=== PATIENT | male | born 1980 | race Caucasian/White ===

== ENCOUNTER 2017-04-29 14:36 | Emergency (ER) | payer SELFPAY ==
[~2017-04-29 14:36] MED LIST: ALBU8I INH; AUGM875T PO; NAPR500 PO; PRED20 PO; ZITH250T PO
[2017-04-29 15:15] VITALS: BP 132/75; PULSE 91; RESP 18; TEMP 97.7; O2SAT 98
--- NOTE | 2017-04-29 15:48 | RADRPT ---
EXAM DATE/TIME: 04/29/2017 15:30 [facility] COMPARISON: No previous studies available for comparison. INDICATIONS : Skateboard accident, neck pain, previous C4-C6 fusion in 2006. RADIATION DOSE: 16.02 CTDIvol (mGy) MEDICAL HISTORY : None SURGICAL HISTORY : Fusion, cervical. ENCOUNTER: Initial ACUITY: 3 days PAIN SCALE: 7/10 LOCATION: Bilateral neck TECHNIQUE: Volumetric scanning of the cervical spine was performed. Multiplanar reconstructions in the sagittal, coronal and oblique axial planes were performed. Using automated exposure control and adjustment o f the mA and/or kV according to patient size, radiation dose was kept as low as reasonably achievable to obtain optimal diagnostic quality images. DICOM format image data is available electronically f or review and comparison. FINDINGS: VERTEBRAE: Normal vertebral body height. Status post anterior cervical fusion at C4-5 and C5-6. The hardware is grossly intact. No acute bony fracture. ALIGNMENT: No evidence of subluxation. C2-C3: The bony spinal canal is normal in size. No evidence of disc bulge or herniation. The neural forami na are bilaterally patent. C3-C4: The bony spinal canal is normal in size. No evidence of disc bulge or herniation. The neural forami na are bilaterally patent. C4-C5: The bony spinal canal is normal in size. No evidence of disc bulge or herniation. The neural forami na are bilaterally patent. C5-C6: The bony spinal canal is normal in size. No evidence of disc bulge or herniation. The neural forami na are bilaterally patent. C6-C7: The bony spinal canal is normal in size. No evidence of disc bulge or herniation. The neural forami na are bilaterally patent. C7-T1: The bony spinal canal is normal in size. No evidence of disc bulge or herniation. The neural forami na are bilaterally patent. CONCLUSION: 1. Status post anterior cervical fusion at C4-5 and C5-6. 2. Otherwise, unremarkable exam. Broderick Arellano MD on April 29, 2017 at 15:43 Board Certified Radiologist. This report was verified electronically.
--- NOTE | 2017-04-29 16:16 | RADRPT ---
EXAM DATE/TIME: 04/29/2017 15:58 [facility] COMPARISON: No previous studies available for comparison. INDICATIONS : Left hip pain for 4 days. Skateboard accident. MEDICAL HISTORY : None. SURGICAL HISTORY : None. ENCOUNTER: Initial ACUITY: 4 - 6 days PAIN SCORE: 10/10 LOCATION: Left hip. FINDINGS: Examination of the left hip was performed with AP Pelvis. The primary and secondary trabecular patte rn of the femoral neck is intact. The hip joint is of normal width without significant sclerosis or bony hypertrophy. The acetabulum is grossly intact. CONCLUSION: Normal examination for a patient of this age. Broderick Arellano MD on April 29, 2017 at 16:14 Board Certified Radiologist. This report was verified electronically.
--- NOTE | 2017-04-29 17:28 | PD ---
HPI Chief Complaint: Pain: Acute or Chronic Time Seen by Provider: 17:05 Travel History International Travel<30 days: No Contact w/Intl Traveler<30days: No Traveled to known affect area: No History of Present Illness HPI 36 YO M presents to the ED for evaluation of 8/10 left arm pain. Onset "3 days ago" after the patient fell while skateboarding in [facility]. He states that he was seen at an emergency room and diagnosed with a wrist fracture. A splint was placed at the time. He states that he called Dr. Peña's office today for follow-up and was told to come to the emergency room. He also complains of posterior neck pain, worsened by range of motion and left hip pain. He has been ambulatory since the accident. He denies numbness, tingling , weakness, limitation to range of motion of the remaining extremities. Home with "a Dilaudid that I got from a friend." PFSH Past Medical History Hx Anticoagulant Therapy: No Autoimmune Disease: No Blood Disorders: No Anxiety: No Depression: Yes Cancer: No Cardiovascular Problems: No Chemotherapy: No Cerebrovascular Accident: No Diabetes: No Diminished Hearing: No Endocrine: No Gastrointestinal Disorders: No Genitourinary: No Immune Disorder: No Implanted Vascular Access Dvce: Yes Musculoskeletal: Yes Neurologic: No Psychiatric: No Reproductive: No Respiratory: No Thyroid Disease: No Past Surgical History AICD: No Arteriovenous Shunt: No Body Medical Devices: CERVICAL HARDWARE Genitourinary Surgery: Yes (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) Insulin Pump: No Joint Replacement: No (C5 FUSION) Neurologic Surgery: Yes (ANTERIOR CERVICAL FUSION C4-6 S/P [facility] [place] - 12/2006) Pacemaker: No Other Surgery: Yes (UNDISTENDED TESTICLE SURGERY) Social History Alcohol Use: No Tobacco Use: Yes (1 PPD) Substance Use: Yes (Occasional marijuana ) Allergies-Medications (Allergen,Severity, Reaction): Coded Allergies: No Known Allergies (Verified , 02/12/15) Reported Meds & Prescriptions Reported Meds & Active Scripts Active Bactroban Topical (Mupirocin) 22 Gm Cream 1 Applic TOPICAL BID 10 Days Ibuprofen 800 Mg Tab 800 Mg PO Q8H PRN Ventolin Hfa (Albuterol Sulfate) 8 Gm Aero 2 Puff INH Q6 PRN * SHAKE WELL BEFORE USE * Deltasone 20 Mg Tab (Prednisone) 20 Mg Tab 20 Mg PO Q12HR 5 Days Zithromax Z-Wayne (Azithromycin) 250 Mg Tab 250 Mg PO DIRECTED 5 Days 500 MG (2 TABLETS) PO ON DAY 1, THEN 250 MG (1 TABLET) PO ON DAYS 2 TO 5. Naprosyn (Naproxen) 500 Mg Tab 500 Mg PO BID PRN Take with food Augmentin 875 mg Tab (Amoxicillin & Pot Clavulanate 875 mg Tab) 875 Mg Tab 875 Mg PO BID 7 Days Review of Systems Except as stated in HPI: all other systems reviewed are Neg Physical Exam Narrative GENERAL: Well-nourished, well-developed white male in no acute distress. Left arm in a colles splint. SKIN: Warm and dry. Multiple superficial lesions of the surface of the back, left hip and buttocks. Localized erythema without signs of infection. HEAD: Normocephalic. Atraumatic. No raccoon eyes or anderson sign. No tenderness to palpation of the skull. No bony step-offs. No malocclusion of the teeth. EYES: No scleral icterus. No injection or drainage. Pupils pinpoint bilaterally. EOMI. NECK: Supple, trachea midline. No JVD or lymphadenopathy. + midline and paraspinal muscular tenderness to palpation. Patient retains full, active range of motion of the neck. CARDIOVASCULAR: Regular rate and rhythm without murmurs, gallops, or rubs. 2+ DP and radial pulses bilaterally. RESPIRATORY: Breath sounds clear and equal bilaterally. No accessory muscle use. GASTROINTESTINAL: Abdomen soft, non-tender, nondistended. + Bowel sounds FOCUSED LEFT UPPER EXTREMITY EXAM: Fingers are pink, warm and well perfused. Mild edema noted. Sensation intact to light touch distally. MUSCULOSKELETAL: No cyanosis, or edema. No tenderness to palpation or limitations to range of motion of the remaining joints of the upper and lower extremities bilaterally. NEUROLOGICAL: Awake and alert. Cranial nerves II through XII intact. Motor and sensory grossly within normal limits. 5/5 muscle strength in all muscle groups. Normal speech. BACK: Nontender without obvious deformity. No CVA tenderness. No midline tenderness. Data Data Last Documented VS Vital Signs Date Time Temp Pulse Resp B/P (MAP) Pulse Ox O2 Delivery O2 Flow Rate FiO2 18 15:15 97.7 91 18 132/75 (94) [address] Cerv Spine W/O Contrast (04/29/17 ) Hip, Uni(Ap&Lat) W Ap Pelvis (04/29/17 ) Mandatory Outpatient Referral (04/29/17 17:28) Ed Discharge Order (04/29/17 17:32) [facility] Medical Decision Making Medical Screen Exam Complete: Yes Emergency Medical Condition: Yes Differential Diagnosis wrist fracture versus musculoskeletal pain versus abrasion versus wound infection versus other Narrative Course 36 YO M presents to the ED for evaluation of 8/10 left arm pain. Onset "3 days ago" after the patient fell while skateboarding in [facility]. He states that he was seen at an emergency room and diagnosed with a wrist fracture. A splint was placed at the time. He states that he called Dr. Peña's office today for follow-up and was told to come to the emergency room. He also complains of posterior neck pain, worsened by range of motion and left hip pain. He has been ambulatory since the accident. He denies numbness, tingling , weakness, limitation to range of motion of the remaining extremities. He treated at home with "a Dilaudid and got from a friend." Vitals reviewed. On exam the patient has pinpoint pupils and sluggish responses. He does have midline tenderness of the neck without focal neuro deficits. The splint is in place with some edema of the hand. The hand is warm, well-perfused and neurologically intact. CT of the cervical spine reveals previous fusion with no acute injury. X-ray of the hip normal. On recheck the patient is lying in the bed, asleep, mouth hanging wide open. Patient's prescribed 800 mg 3 times a day when necessary for pain. Mandatory outpatient consult was placed with orthopedics. He was given detailed instructions regarding the mandatory outpatient consult. He is stable and discharged home. Diagnosis Primary Impression: Musculoskeletal pain Additional Impression: Left wrist fracture Qualified Codes: S62.102D - Fracture of unspecified carpal bone, left wrist, subsequent encounter for fracture with routine healing Referrals: Aparna Ponce MD Additional Instructions: Keep the arm in a splint until cleared by the orthopedist. A mandatory outpatient referral has been placed on your behalf. The hospital will call you at the contact number that you supplied in a few days with further instructions regarding follow-up. Keep the abrasions clean, dry. Apply Bactroban ointment twice a day as prescribed. Return to normal, gentle activity as tolerated. 800 mg ibuprofen up to 3 times a day as needed for musculoskeletal pain. Return to the ED for worsening symptoms or any urgent or emergent medical condition. Scripts Mupirocin Topical (Bactroban Topical) 22 Gm Cream 1 APPLIC TOPICAL BID for Mgmt Bacterial Infection for 10 Days, #1 TUBE 0 Refills Prov: Gricel Fitzpatrick MD 04/29/17 Ibuprofen (Ibuprofen) 800 Mg Tab 800 MG PO Q8H Y for Pain/Inflammation, #15 TAB 0 Refills Prov: Gricel Fitzpatrick MD 04/29/17 Disposition: 01 DISCHARGE HOME Condition: Stable Justyna Merida Apr 29, 2017 17:28
[2017-04-29] MEDS ORDERED: IBUP1TAB7 PO (17:31)
[2017-04-29] MEDS ORDERED: MUPI2%T TOPICAL (17:31)
== END 2017-04-29 17:48 | disposition home or self-care (01) ==
LOC: NED 14:36 → NEPK 17:48
DX: M79.1 Myalgia (principal); M54.2 Cervicalgia; M25.552 Pain in left hip; S62.102D Fracture of unspecified carpal bone, left wrist, subsequent encounter for fracture with routine healing; V00.131D Fall from skateboard, subsequent encounter
CPT/HCPCS: 72125; 73502

== ENCOUNTER → 2017-05-08 | Day surgery (SDC) | payer SELFPAY ==
[~2017-05-08] VITALS: Ht 179.1 cm; Wt 72.0 kg
[~2017-05-08] MED LIST changes: +*MEPERIDINE 25 MG INJ VIAL PERIprocedural Use ONLY ONE; +*morphine SULFATE 4 MG/ML PERIprocedure ONLY ONE; +ACETAMINOPHEN 1000 MG/100 ML 100 ML IV ONE; +BUPIVACAINE/EPINEPHRINE 0.25% PF 10 ML VIAL ONE; +CHLORHEXIDINE GLUCONATE 2 % 1 PACK (2 CLOTHS) TOPICAL PRN; +CHLORHEXIDINE GLUCONATE 4% SOLN 120 ML BTL TOPICAL SCH; +DEXAMETHASONE SOD PHOS 4 MG/ML VIAL IV ONE; +DO NOT ADM ANY ANTICOAGULANT DRUGS PRN; +GENTAMICIN SULFATE 80 MG/2 ML VIAL ONE; +HYDROmorphone HCL PF 2 MG/ML VIAL ONE; +IBUP1TAB7 PO; +INSULIN HUMAN REGULAR 1,000 UNITS/10 ML VIAL SQ PRN; +KETOROLAC TROMETHAMINE 30 MG/ML (IVP) VIAL IV PUSH ONE; +LACTATED RINGER'S 1000 ML INJ 1,000 ML IV ONE; +LACTATED RINGER'S 1000 ML IV PRN; +LIDOCAINE HCL 1% PF 5 ML SYRINGE OTHER ONE; +METOPROLOL TARTRATE 25 MG TAB PO PRN; +MIDAZOLAM HCL 2 MG/2 ML VIAL ONE; +MORPHINE SULFATE 4 MG/ML INJ IV PUSH PRN; +MUPI2%T TOPICAL; +ONDANSETRON HCL 4 MG/2 ML VIAL IV ONE; +ONDANSETRON HCL 4 MG/2 ML VIAL IV PUSH PRN; +OXYC1TAB63 PO; +POVIDONE IODINE 5% (ANTISEPSIS KIT) 4 APPLICATIONS EACH NARE PRN; +PROPOFOL 200 MG/20 ML AMP IV ONE; +SODIUM CHLOR 0.9% 250 ML INJ 250 ML ONE; +SODIUM CHLORID 0.9% 500 ML IV PRN; +SODIUM CHLORIDE 0.9% FLUSH 10 ML FLUSH IV FLUSH PRN; +SODIUM CHLORIDE 0.9% FLUSH 10 ML FLUSH IV FLUSH SCH; +VANCOMYCIN HCL 1000 MG VIAL ONE; +ceFAZolin INJ 1,000 MG VIAL ONE; +oxyCODONE/ACETAMINOPHEN 5 MG/325 MG TAB PO PRN
[2017-05-08 11:54] LABS: AUTOMATED NEUTROPHIL # 2.7 TH/MM3 (1.8-7.7); BASOPHIL % 1.2 % (0.0-2.0); EOSINOPHIL # 0.1 TH/MM3 (0-0.4); EOSINOPHIL % 2.5 % (0.0-4.0); HEMOGLOBIN 13.7 GM/DL (13.0-17.0); LYMPH % 20.9 % (9.0-44.0); LYMPHOCYTE # 0.8 TH/MM3 (1.0-4.8); MEAN CELL VOLUME 85.8 FL (80.0-100.0); MEAN CORPUSCULAR HEMOGLOBIN 29.4 PG (27.0-34.0); MEAN CORPUSCULAR HGB CONC 34.2 % (32.0-36.0); MEAN PLATELET VOLUME 7.2 FL (7.0-11.0); MONO % 8.2 % (0.0-8.0); MONOCYTE # 0.3 TH/MM3 (0-0.9); NEUT % 67.2 % (16.0-70.0); PLATELET COUNT 259 TH/MM3 (150-450); RED BLOOD COUNT 4.66 MIL/MM3 (4.50-5.90); RED CELL DISTRIBUTION WIDTH 13.7 % (11.6-17.2); WHITE BLOOD COUNT 4.1 TH/MM3 (4.0-11.0)
[2017-05-08 11:57] LABS: PROTHROMBIN TIME - PATIENT 10.2 SEC (9.8-11.6)
[2017-05-08 12:10] LABS: BICARBONATE 27.4 MEQ/L (21.0-32.0); CALCIUM 8.9 MG/DL (8.5-10.1); CREATININE 0.94 MG/DL (0.60-1.30)
--- NOTE | 2017-05-08 15:05 | PD.OP ---
cc: Aparna Ponce MD Operative Report Date of Surgery: May 08, 2017 Preoperative Diagnosis: Closed left intra-articular distal radius fracture, four-part Postoperative Diagnosis: Same Procedure: Open reduction internal fixation left intra-articular distal radius fracture, four-part Anesthesia: Gen. Surgeon: Aparna Ponce Pole Setter(s): None Operation and Findings: EBL: 25 cc Complications: None Specimens: None Indications for procedure: Patient is a 36-year-old gentleman who fell while skateboarding in [place]. Patient was found to have a closed left distal radius fracture. Patient presented to my office in a splint. Options of management were discussed with the patient. Given the significant displacement and intra-articular split, I recommended open reduction internal fixation of his left distal radius fracture. Risks of surgery including but not limited to : Infection, nonunion or malunion, hardware malposition of failure, neurovascular injury, persistent wrist pain and stiffness, possible need for further surgery, and other unforeseen consultations were all discussed with the patient. At this time he is consented for the procedure. Description of procedure: Patient was brought back to the operating room placed supine on operating room table with all bony prominences well-padded. Gen. anesthesia then ensued. A tourniquet was placed on the upper left arm and the patient was prepped and draped in standard sterile fashion. A timeout was performed to identify the correct patient, side, site and procedure to be performed. Preoperative antibiotics were given within 1 hour of incision. The arm was then exsanguinated and tourniquet inflated to 250 mmHg. A volar Valdemar incision was made over the FCR tendon with sharp dissection through the skin and subcutaneous tissue. The FCR tendon was then mobilized ulnarly and the floor of the FCR sheath was incised along with the pronator quadratus. The fracture site was immediately encountered and this was sharply dissected and freed to allow mobilization. The fracture was then reduced with traction and extension of the wrist. A K wire was placed just proximal to the joint surface to hold this reduction. A Synthes distal radius plate was then placed and verified to be in appropriate position on AP and lateral radiographs. A proximal nonlocking screw was then placed a hold the plate in place. Again the fracture was found to be in acceptable alignment on AP and lateral and the plate in appropriate position. At this time, locking and nonlocking screws were placed both distally and proximally. These were tightened down. The volar tilt appeared to be restored and the joint surface within acceptable limits. Hardware appeared to be in appropriate position, and out of the joint surface. Final radiographs were obtained. Incision was thoroughly irrigated with normal saline laden with gentamicin. The subcutaneous tissue was then closed with Vicryl suture and the skin closed with nylon. Sterile dressings were applied and a splint also applied. Patient was then awoken from general anesthesia without complication. Disposition: Patient be nonweightbearing to the left upper extremity in a splint and sling. Patient should follow-up in my office in 2 weeks. Aparna Ponce MD May 08, 2017 15:05
[2017-05-08 16:39] VITALS: BP 144/99; PULSE 53; RESP 18; TEMP 97.4; O2SAT 97
--- NOTE | 2017-05-08 19:20 | RADRPT ---
EXAM DATE/TIME: 05/08/2017 14:44 [facility] COMPARISON: No previous studies available for comparison. INDICATIONS : Left wrist open reduction internal fixation. MEDICAL HISTORY : None. SURGICAL HISTORY : Fusion, cervical. ENCOUNTER: Initial ACUITY: 1 day PAIN SCORE: Non-responsive. LOCATION: Left wrist FINDINGS: Two view examination of the left wrist demonstrates a surgical plate along the distal radius successf ul reducing the distal radial fracture. The radiocarpal joint is normally aligned. CONCLUSION: Successful ORIF. Shaun Avila MD on May 08, 2017 at 19:17 Board Certified Radiologist. This report was verified electronically.
== END | disposition home or self-care (01) ==
LOC: HSDC 10:31
PROVIDERS: ATTEND Orthopaedic Surgery Orthopaedic Surgery of the Spine
DX: S52.572A Other intraarticular fracture of lower end of left radius, initial encounter for closed fracture (principal); V00.131A Fall from skateboard, initial encounter; Y93.51 Activity, roller skating (inline) and skateboarding; F17.290 Nicotine dependence, other tobacco product, uncomplicated
CPT/HCPCS: 01830; 25609; 73100; 76000; 80048; 85025; 85610; 85730; C1713; J0131; J0690; J1100; J1170; J1580; J1885; J2175; J2250; J2270; J2405; J3010; J3370; J7050; J7120

== ENCOUNTER 2017-05-22 11:39 | Inpatient (IN) | payer SELFPAY ==
[~2017-05-22] VITALS: Ht 177.8 cm; Wt 70.1 kg
[~2017-05-22 11:39] MED LIST changes: -*MEPERIDINE 25 MG INJ VIAL PERIprocedural Use ONLY ONE; -*morphine SULFATE 4 MG/ML PERIprocedure ONLY ONE; -ACETAMINOPHEN 1000 MG/100 ML 100 ML IV ONE; -ALBU8I INH; -AUGM875T PO; -BUPIVACAINE/EPINEPHRINE 0.25% PF 10 ML VIAL ONE; -CHLORHEXIDINE GLUCONATE 2 % 1 PACK (2 CLOTHS) TOPICAL PRN; -CHLORHEXIDINE GLUCONATE 4% SOLN 120 ML BTL TOPICAL SCH; -DEXAMETHASONE SOD PHOS 4 MG/ML VIAL IV ONE; -DO NOT ADM ANY ANTICOAGULANT DRUGS PRN; -GENTAMICIN SULFATE 80 MG/2 ML VIAL ONE; -HYDROmorphone HCL PF 2 MG/ML VIAL ONE; -IBUP1TAB7 PO; -INSULIN HUMAN REGULAR 1,000 UNITS/10 ML VIAL SQ PRN; -KETOROLAC TROMETHAMINE 30 MG/ML (IVP) VIAL IV PUSH ONE; -LACTATED RINGER'S 1000 ML INJ 1,000 ML IV ONE; -LACTATED RINGER'S 1000 ML IV PRN; -LIDOCAINE HCL 1% PF 5 ML SYRINGE OTHER ONE; -METOPROLOL TARTRATE 25 MG TAB PO PRN; -MIDAZOLAM HCL 2 MG/2 ML VIAL ONE; -MORPHINE SULFATE 4 MG/ML INJ IV PUSH PRN; -MUPI2%T TOPICAL; -NAPR500 PO; -ONDANSETRON HCL 4 MG/2 ML VIAL IV ONE; -ONDANSETRON HCL 4 MG/2 ML VIAL IV PUSH PRN; -POVIDONE IODINE 5% (ANTISEPSIS KIT) 4 APPLICATIONS EACH NARE PRN; -PRED20 PO; -PROPOFOL 200 MG/20 ML AMP IV ONE; -SODIUM CHLOR 0.9% 250 ML INJ 250 ML ONE; -SODIUM CHLORID 0.9% 500 ML IV PRN; -SODIUM CHLORIDE 0.9% FLUSH 10 ML FLUSH IV FLUSH PRN; -SODIUM CHLORIDE 0.9% FLUSH 10 ML FLUSH IV FLUSH SCH; -VANCOMYCIN HCL 1000 MG VIAL ONE; -ZITH250T PO; -ceFAZolin INJ 1,000 MG VIAL ONE; -oxyCODONE/ACETAMINOPHEN 5 MG/325 MG TAB PO PRN
[2017-05-22] MEDS ORDERED: PROPOFOL 200 MG/20 ML AMP IV ONE (12:00)
[2017-05-22] MEDS ORDERED: LACTATED RINGER'S 1000 ML INJ 1,000 ML IV ONE (12:00)
[2017-05-22] MEDS ORDERED: LIDOCAINE HCL 1% PF 5 ML SYRINGE OTHER ONE (12:00)
[2017-05-22] MEDS ORDERED: ceFAZolin INJ 1,000 MG VIAL IV ONE ×2 (12:00→16:05)
[2017-05-22] MEDS ORDERED: ONDANSETRON HCL 4 MG/2 ML VIAL IV ONE (12:00)
[2017-05-22] MEDS ORDERED: POVIDONE IODINE 5% (ANTISEPSIS KIT) 4 APPLICATIONS EACH NARE PRN (12:15)
[2017-05-22] MEDS ORDERED: LACTATED RINGER'S 1000 ML IV PRN (12:15)
[2017-05-22] MEDS ORDERED: SODIUM CHLORID 0.9% 500 ML IV PRN (12:15)
[2017-05-22] MEDS ORDERED: METOPROLOL TARTRATE 25 MG TAB PO PRN (12:15)
[2017-05-22] MEDS ORDERED: CHLORHEXIDINE GLUCONATE 4% SOLN 120 ML BTL TOPICAL SCH (12:15)
[2017-05-22] MEDS ORDERED: VANCOMYCIN 1 GM/200 ML PREMIX IV SCH (12:15)
[2017-05-22] MEDS ORDERED: CHLORHEXIDINE GLUCONATE 2 % 1 PACK (2 CLOTHS) TOPICAL PRN (12:15)
[2017-05-22] MEDS ORDERED: INSULIN HUMAN REGULAR 1,000 UNITS/10 ML VIAL SQ PRN (12:15)
[2017-05-22] MEDS ORDERED: BUPIVACAINE/EPINEPHRINE 0.25% 50 ML VIAL ONE (13:18)
[2017-05-22] MEDS ORDERED: GENTAMICIN SULFATE 80 MG/2 ML VIAL ONE (13:21)
[2017-05-22 13:32] LABS: AUTOMATED NEUTROPHIL # 4.9 TH/MM3 (1.8-7.7); BASOPHIL % 0.7 % (0.0-2.0); EOSINOPHIL # 0.2 TH/MM3 (0-0.4); EOSINOPHIL % 3.6 % (0.0-4.0); HEMATOCRIT 40.7 % (39.0-51.0); HEMOGLOBIN 13.9 GM/DL (13.0-17.0); LYMPH % 13.6 % (9.0-44.0); LYMPHOCYTE # 0.9 TH/MM3 (1.0-4.8); MEAN CELL VOLUME 85.5 FL (80.0-100.0); MEAN CORPUSCULAR HEMOGLOBIN 29.3 PG (27.0-34.0); MEAN CORPUSCULAR HGB CONC 34.2 % (32.0-36.0); MEAN PLATELET VOLUME 7.8 FL (7.0-11.0); MONO % 7.7 % (0.0-8.0); MONOCYTE # 0.5 TH/MM3 (0-0.9); NEUT % 74.4 % (16.0-70.0); PLATELET COUNT 239 TH/MM3 (150-450); RED BLOOD COUNT 4.76 MIL/MM3 (4.50-5.90); RED CELL DISTRIBUTION WIDTH 13.6 % (11.6-17.2); WHITE BLOOD COUNT 6.6 TH/MM3 (4.0-11.0)
[2017-05-22 13:41] LABS: PROTHROMBIN TIME - PATIENT 10.6 SEC (9.8-11.6)
[2017-05-22 13:46] LABS: BICARBONATE 27.6 MEQ/L (21.0-32.0); C-REACTIVE PROTEIN 1.37 MG/DL (0.00-0.30); CALCIUM 8.8 MG/DL (8.5-10.1); CREATININE 0.92 MG/DL (0.60-1.30)
[2017-05-22] MEDS ORDERED: fentaNYL CITRATE 250 MCG/5 ML AMP ONE (14:55)
[2017-05-22] MEDS ORDERED: VANCOMYCIN HCL 1000 MG VIAL ONE (16:06)
[2017-05-22] MEDS ORDERED: SENNOSIDES 8.6 MG TAB PO PRN (17:15)
[2017-05-22] MEDS ORDERED: LACTULOSE SYRUP 20 GM/30 ML CUP PO PRN (17:15)
[2017-05-22] MEDS ORDERED: BISACODYL 10 MG SUPP RECTAL PRN (17:15)
[2017-05-22] MEDS ORDERED: diphenhydrAMINE HCL 25 MG CAP PO PRN (17:15)
[2017-05-22] MEDS ORDERED: oxyCODONE/ACETAMINOPHEN 5 MG/325 MG TAB PO PRN (17:15)
[2017-05-22] MEDS ORDERED: MAGNESIUM HYDROXIDE SUSP 30 ML CUP PO PRN (17:15)
[2017-05-22] MEDS ORDERED: ONDANSETRON HCL 4 MG/2 ML VIAL IVP PRN (17:15)
[2017-05-22] MEDS ORDERED: HYDROmorphone HCL PF 2 MG/ML VIAL ONE (17:17)
[2017-05-22] MEDS ORDERED: Post-op Orders (for Pharmacy) XX ONE (17:20)
[2017-05-22] MEDS ORDERED: DO NOT ADM ANY ANTICOAGULANT DRUGS PRN (17:20)
--- NOTE | 2017-05-22 17:20 | PD.OP ---
cc: Aparna Ponce MD Operative Report Date of Surgery: May 22, 2017 Preoperative Diagnosis: Infection left distal radius with retained hardware Postoperative Diagnosis: Same Procedure: 1. Irrigation and debridement left distal radius 2. Application of external fixator left wrist Anesthesia: Gen. Surgeon: Aparna Ponce Boat Rigger(s): Brannon Montoya Operation and Findings: EBL: 100 cc Complications: None Specimens: Culture sent to microbiology Indications for procedure 36-year-old male who presented approximately 2 weeks status post ORIF left distal radius with purulence draining from incision. Options of management were discussed with the patient. Given the concern for infection, I recommended irrigation and debridement of his left distal radius with possible application of external fixator, possible hardware removal. Risks , benefits, alternatives were discussed with the patient. Risks of surgery including but not limited to: Persistent infection, nonunion or malunion, hardware malposition or failure, neurovascular injury, persistent wrist pain and or stiffness, possible need further surgery, and other unforeseen consultations were all discussed with the patient. At this time he is consented to the procedure. Description of procedure: Patient was brought back to the operating room placed supine on operating room table with all bony prominences well-padded. Gen. anesthesia then ensued. Patient was prepped and draped in standard sterile fashion. A timeout was performed to identify the correct patient, side, site and procedure to be performed. The volar incision over his wrist had the sutures removed. There is immediately a small amount of purulence encountered and this was cultured. The FCR tendon was mobilized ulnarly and the volar plates exposed. This again was cultured. At this time the wound was curetted and sharply debrided and brought back to healthy bleeding tissue. The wound was thoroughly irrigated with over 6 L of normal saline laden with gentamicin. The hardware appeared relatively stable and therefore was left in place. The wound was closed with PDS and nylon sutures. Underlying fluoroscopy, the wrist was flexed and extended and traction applied. The fracture appeared to be relatively unstable in length. At this time is decided to place external fixator in place to try to maintain length. I the made a small incision over the dorsal aspect of the second metacarpal with careful dissection through subcutaneous tissue and the extensor tendon mobilized. Guide sleeves were then placed and the second metacarpal was predrilled for placement of metacarpal pins. The pin was then placed. This process was then repeated just distally through the use of guide sleeves. I then turned my attention to the more proximal aspect of the radius. Approximate 4 cm proximal to the distal radius plate, I made a dorsal incision with dissection through the subtendinous tissue and fascia with mobilization of the extensor tendons to allow dissection straight down to the radius. Again the guide sleeves were placed, and the radius was predrilled for placement of radial pins. The pin was then placed and the process was repeated just proximally through the use of guide sleeves. When all 4 pins were verified to be bicortical, the clamps and rods were then applied. The clamps and rods were final tightened at the proximal aspect of the radius and left loose at the hand to allow for traction and rotation to be pulled. Under AP and lateral radiographs, the wrist was reduced and traction applied. The fracture appeared to be maintained in length and the clamps and francois were final tightened at the hand. Final radiographs demonstrated the fracture was in acceptable alignment and out to length. All wounds were thoroughly irrigated. Sterile dressings were applied along with a volar splint. Patient was awoken from general anesthesia without complication. Disposition: Patient will be admitted to the hospital and infectious disease will be consult it. Plan will be to leave his volar plate in place until his fracture is able to heel. He will likely require at least several weeks of antibiotics pending cultures. Aparna Ponce MD May 22, 2017 17:20
[2017-05-22] MEDS ORDERED: *MEPERIDINE 25 MG INJ VIAL PERIprocedural Use ONLY ONE (17:34)
[2017-05-22] MEDS ORDERED: *morphine SULFATE 4 MG/ML PERIprocedure ONLY ONE ×2 (17:41→17:49)
--- NOTE | 2017-05-22 17:43 | RADRPT ---
EXAM DATE/TIME: 05/22/2017 16:34 [facility] COMPARISON: WRIST LEFT LIMITED (AP & LAT), May 08, 2017, 14:44. INDICATIONS : Left forearm ex-fix. MEDICAL HISTORY : None. SURGICAL HISTORY : Fusion, cervical. Left wrist ORIF. ENCOUNTER: Initial ACUITY: 1 day PAIN SCORE: Non-responsive. LOCATION: Left forearm FINDINGS: 4 fluoroscopic images of the left wrist demonstrate external fixation screws in the proximal radius a nd third carpal bone with redemonstration of plate and screw fixation of comminuted radial head fract ure. CONCLUSION: 1. Left forearm external fixation, as above. Julito Zuleta MD on May 22, 2017 at 17:38 Board Certified Radiologist. This report was verified electronically.
[2017-05-22] MEDS ORDERED: KETOROLAC TROMETHAMINE 30 MG/ML (IVP) VIAL IV PUSH ONE (17:47)
[2017-05-22] MEDS ORDERED: ACETAMINOPHEN 1000 MG/100 ML 100 ML IV ONE ×2 (17:47→17:51)
[2017-05-22] MEDS ORDERED: LORazepam 2 MG/ML VIAL IV ONE (17:47)
[2017-05-22] MEDS ORDERED: KETOROLAC TROMETHAMINE 30 MG/ML (IVP) VIAL ONE (17:51)
[2017-05-22] MEDS ORDERED: LORazepam 2 MG/ML VIAL ONE (17:51)
[2017-05-22] MEDS ORDERED: *hydrOXYzine 25 MG VIAL PERIprocedural Use ONLY IM ONE (17:55)
[2017-05-22] MEDS ORDERED: LORazepam 2 MG/ML VIAL IV PRN (18:15)
[2017-05-22 20:00] VITALS: BP 148/73; PULSE 65; RESP 17; TEMP 97.5; O2SAT 100
[2017-05-22] MEDS: DOCUSATE SODIUM 50 MG/SENNA 8.6 MG TAB PO SCH (21:00)
[2017-05-22] MEDS: SODIUM CHLORIDE 0.9% FLUSH 10 ML FLUSH IV FLUSH SCH (21:12)
[2017-05-22] MEDS: MORPHINE SULFATE 2 MG/ML SYRINGE IV PUSH PRN (21:15)
[2017-05-23] VITALS: BP 131/72; PULSE 59; RESP 17; TEMP 97.8; O2SAT 97
[2017-05-23] MEDS: SODIUM CHLORIDE 0.9% FLUSH 10 ML FLUSH IV FLUSH PRN ×2 (04:03→04:54)
[2017-05-23] MEDS: VANCOMYCIN INJ 1,000 MG in SODIUM CHLOR 0.9% 250 ML INJ 250 ML IV SCH ×2 (04:03→15:53)
[2017-05-23] MEDS: MORPHINE SULFATE 2 MG/ML SYRINGE IV PUSH PRN ×4 (04:54→20:40)
[2017-05-23 08:00] VITALS: BP 129/82; PULSE 60; RESP 19; TEMP 98.1; O2SAT 96
[2017-05-23] MEDS: SODIUM CHLORIDE 0.9% FLUSH 10 ML FLUSH IV FLUSH SCH ×2 (08:34→20:41)
[2017-05-23] MEDS: DOCUSATE SODIUM 50 MG/SENNA 8.6 MG TAB PO SCH ×2 (08:35→20:41)
[2017-05-23 11:23] VITALS: BP 135/83; PULSE 68; RESP 16; TEMP 98.3; O2SAT 97
[2017-05-23] MEDS: oxyCODONE/ACETAMINOPHEN 5 MG/325 MG TAB PO PRN (12:41)
[2017-05-23 16:00] VITALS: BP 121/64; PULSE 67; RESP 18; TEMP 98.3; O2SAT 98
[2017-05-23] MEDS ORDERED: Vancomycin Consult Pharmacy 1 EA OTHER SCH (16:15)
--- NOTE | 2017-05-23 16:37 | MB ---
cc: Ulysses Murillo MD DATE: 05/23/2017 DATE OF CONSULTATION: 05/23/2017 REQUESTING PHYSICIAN: Dr. Ponce. REASON: Wound infection of the left wrist. HISTORY OF PRESENT ILLNESS: This is a 36-year-old white male who sustained a fracture of the left distal radius while skateboarding in [place] 2 weeks ago. The patient underwent open reduction and internal fixation of a left intraarticular distal radius fracture on 05/08/2017. He returned for followup and upon checking the wound he was noted to have drainage and was admitted to the hospital after undergoing irrigation and debridement of the left distal radius and application of an external fixator at the left wrist. The patient had retained hardware at the wrist on the first surgical procedure. Culture of the wound was taken at surgery and the results are pending. The patient notes that he has severe pain in the left hand at the wrist. He denies fever, chills, nausea or vomiting or other symptoms. White blood cell count is normal. PAST MEDICAL HISTORY: Fracture of the cervical spine in 2006. Anterior cervical fusion C4 through C6. 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 ALLERGIES: NO KNOWN DRUG ALLERGIES. MEDICATIONS: 1. Vistaril 2. Charleen-Colace. 3. Vancomycin. 4. Percocet p.r.n. 5. Morphine sulfate p.r.n. SOCIAL HISTORY: The patient smokes 1 pack of cigarettes a day. Denies alcohol use. Smoked marijuana. Denies illicit drugs. FAMILY HISTORY: Noncontributory. REVIEW OF SYSTEMS: Negative on a 10-point review except for pain in the left wrist. PHYSICAL EXAMINATION: GENERAL: A well-developed male is in no acute distress. He is awake and alert and oriented. VITAL SIGNS: Includes temperature 98.3, BP 135/83, respirations 16, heart rate 68. HEENT: Head is atraumatic. Extraocular movements grossly intact. No icterus. Oropharynx: Moist mucosa. No lesions. NECK: Supple without adenopathy. LUNGS: Clear breath sounds bilaterally. HEART: Regular S1 and S2. No murmurs, rubs or gallops. ABDOMEN: Bowel sounds present. Soft, nontender. RECTAL: Not performed. EXTREMITIES: The left wrist has an external fixator in place. The surgical incision at the inner aspect of the wrist is clean. No visible drainage. No visible erythema. The remaining extremities have no clubbing, cyanosis or edema. SKIN: No rash. NEUROLOGIC: No gross focal finding. PSYCHIATRIC: The patient is calm and cooperative. LABORATORY DATA: WBC 6.6, platelets 239, 74% neutrophils, 13% lymphocytes. Creatinine 0.92, BUN 13, sodium 138. IMPRESSION: Wound infection of the left wrist following wrist fracture repair with hardware. The wound culture is pending. RECOMMENDATIONS: 1. Continue vancomycin. 2. Follow the cultures obtained with the surgery. 3. Antibiotic adjustments depending on the culture results. I agree that the patient will very likely need intravenous antibiotics for a couple of weeks and likely 3 weeks depending on the culture. Thank you for this consultation. I will monitor the patient's progress with you and will make further recommendations upon followup if necessary. MD ROSARIO Barcenas/PATRICE , 04:02 PM , 04:36 PM
[2017-05-23 20:00] VITALS: BP 129/76; PULSE 59; RESP 20; TEMP 97.7; O2SAT 97
[2017-05-24] VITALS (7 sets, daily range): BP systolic 109–142; BP diastolic 62–78; PULSE 47–73; RESP 16–20; TEMP 97.9–98.4; O2SAT 96–100
[2017-05-24] MEDS: MORPHINE SULFATE 2 MG/ML SYRINGE IV PUSH PRN ×6 (00:32→21:01)
[2017-05-24] MEDS: VANCOMYCIN INJ 1,000 MG in SODIUM CHLOR 0.9% 250 ML INJ 250 ML IV SCH ×2 (04:35→16:29)
[2017-05-24] MEDS: DOCUSATE SODIUM 50 MG/SENNA 8.6 MG TAB PO SCH ×2 (08:40→21:01)
[2017-05-24] MEDS: SODIUM CHLORIDE 0.9% FLUSH 10 ML FLUSH IV FLUSH SCH ×2 (08:42→21:01)
--- NOTE | 2017-05-24 10:55 | PD.ORT.PN ---
Subjective Subjective Remarks Patient resting comfortably. He states he does have some mild to moderate wrist discomfort. He denies any significant numbness or tingling. Objective Vitals Vital Signs Date Time Temp Pulse Resp B/P (MAP) Pulse Ox O2 Delivery O2 Flow Rate FiO2 05/24/17 09:34 98 05/24/17 00:00 97.9 47 18 120/62 (81) 97 05/23/17 20:00 97.7 59 20 129/76 (93) 97 05/23/17 16:39 18 05/23/17 16:00 98.3 67 18 121/64 (83) 98 05/23/17 13:41 18 05/23/17 11:23 98.3 68 16 135/83 (100) 97 I/O 05/23/17 05/23/17 05/23/17 05/24/17 05/24/17 05/24/17 07:00 15:00 23:00 07:00 15:00 23:00 Intake Total 490 ml 960 ml Output Total 600 ml Balance -110 ml 960 ml Intake Oral 240 ml 960 ml IV Total 250 ml Output Urine Total 600 ml # Voids 5 # Bowel Movements 1 Result Diagram: 05/22/17 1244 05/22/17 1244 Objective Remarks Awake, alert, no acute distress Left upper extremity: External fixator in place without any significant drainage. Volar splint in place. Patient demonstrates he is able to move his fingers although there is some stiffness as he is anxious to move them due to discomfort. Sensation appears intact. Brisk cap refill. Assessment & Plan Assessment and Plan 36-year-old gentleman, postop day 2 status post irrigation and debridement left wrist along with application of external fixator. 1. Nonweightbearing left upper extremity 2. Mobilization as tolerated. I encouraged the patient to work on finger range of motion. 3. Intraoperative cultures pending. We will continue vancomycin as recommended by ID. Appreciate ID input. Aparna Ponce MD May 24, 2017 10:55
[2017-05-24] MEDS ORDERED: PHARMACY ORDERED LAB ONE (15:45)
[2017-05-25] VITALS: BP 124/66; PULSE 53; RESP 20; TEMP 98; O2SAT 97
[2017-05-25] MEDS: MORPHINE SULFATE 2 MG/ML SYRINGE IV PUSH PRN ×2 (04:44→08:41)
[2017-05-25 08:00] VITALS: BP 126/67; PULSE 60; RESP 18; TEMP 98.1; O2SAT 99
[2017-05-25] MEDS: SODIUM CHLORIDE 0.9% FLUSH 10 ML FLUSH IV FLUSH SCH ×2 (08:41→20:23)
[2017-05-25] MEDS: DOCUSATE SODIUM 50 MG/SENNA 8.6 MG TAB PO SCH ×2 (08:41→20:23)
--- NOTE | 2017-05-25 08:53 | PD.ORT.PN ---
Subjective Subjective Remarks Patient resting comfortably. Sitting upright in bedside chair. He states he does have some mild to moderate wrist discomfort. He denies any significant numbness or tingling. Objective Vitals Vital Signs Date Time Temp Pulse Resp B/P (MAP) Pulse Ox O2 Delivery O2 Flow Rate FiO2 05/25/17 08:00 98.1 60 18 126/67 (86) 99 05/25/17 00:00 98.0 53 20 124/66 (85) 97 05/24/17 21:08 99 21 05/24/17 20:00 98.2 73 20 99 05/24/17 16:00 98.1 69 17 142/76 (98) 100 05/24/17 12:00 98.4 65 16 109/66 (80) 96 05/24/17 09:34 98 I/O 05/24/17 05/24/17 05/24/17 05/25/17 05/25/17 05/25/17 07:00 15:00 23:00 07:00 15:00 23:00 Intake Total 1450 ml 360 ml Balance 1450 ml 360 ml Intake Oral 1200 ml 360 ml IV Total 250 ml # Voids 6 3 # Bowel Movements 1 0 Result Diagram: 05/22/17 1244 05/22/17 1244 Objective Remarks Awake, alert, no acute distress Left upper extremity: External fixator in place without any significant drainage. Volar splint in place. Patient demonstrates he is able to move his fingers although there is some stiffness as he is anxious to move them due to discomfort. Sensation appears intact. Brisk cap refill. Assessment & Plan Assessment and Plan 36-year-old gentleman, postop day 3 status post irrigation and debridement left wrist along with application of external fixator. 1. Nonweightbearing left upper extremity 2. Mobilization as tolerated. I encouraged the patient to work on finger range of motion. 3. Intraoperative cultures with staph aureus. We will continue vancomycin as recommended by ID. Appreciate ID input. Aparna Ponce MD May 25, 2017 08:53
[2017-05-25 12:00] VITALS: BP 128/70; PULSE 70; RESP 17; TEMP 98; O2SAT 98
[2017-05-25 16:00] VITALS: BP 113/58; PULSE 73; RESP 16; TEMP 97.8; O2SAT 99
[2017-05-25 20:00] VITALS: BP 123/73; PULSE 77; RESP 19; TEMP 98.2; O2SAT 99
[2017-05-25] MEDS: oxyCODONE/ACETAMINOPHEN 5 MG/325 MG TAB PO PRN (20:23)
[2017-05-26] VITALS: BP 123/68; PULSE 67; RESP 19; TEMP 98.2; O2SAT 99
[2017-05-26] MEDS: oxyCODONE/ACETAMINOPHEN 5 MG/325 MG TAB PO PRN (04:31)
[2017-05-26 08:00] VITALS: BP 122/77; PULSE 73; RESP 19; TEMP 97.9; O2SAT 99
[2017-05-26] MEDS: SODIUM CHLORIDE 0.9% FLUSH 10 ML FLUSH IV FLUSH SCH (09:00)
[2017-05-26] MEDS: DOCUSATE SODIUM 50 MG/SENNA 8.6 MG TAB PO SCH (09:00)
[2017-05-26] MEDS: MORPHINE SULFATE 2 MG/ML SYRINGE IV PUSH PRN ×3 (10:19→18:58)
--- NOTE | 2017-05-26 11:53 | PD.CONS ---
HPI Service [facility] Consult Requested By Dr. Ponce Reason for Consult Heroin withdrawal Primary Care Physician No Primary Care Physician Diagnoses: History of Present Illness This is a 36-year-old male with a MSSA infection of the left distal radius with retained hardware status post incision and drainage and external fixator. Patient sustained a radial fracture while skateboarding. I have been consulted by patient's attending to evaluate for heroin withdrawal. Patient states that he snorts half a gram heroin every 2 days costing him $60. He continued to use while in-house ran out since yesterday. He complains of hot and cold sensation , diaphoresis and restlessness. Also has increased lacrimation and sniffing. Denies hallucinations. He wants to get off heroin. His last IVDA was over a year ago. He has been diagnosed with hepatitis C and has not sought treatment. Continues to have pain involving his left upper extremity on Percocet and IV morphine. All other systems reviewed negative Review of Systems Except as stated in HPI: all other systems reviewed are Neg Past Family Social History Allergies: Coded Allergies: No Known Allergies (Verified Allergy, Unknown, 05/08/17) Past Medical History As previously mentioned Past Surgical History Cervical spine fracture status post fusion. Surgery for undescended testis Reported Medications Oxycodone-Acetaminophen 5-325 mg Tab 1-2 Tab PO Q4H PRN Family History No CAD Social History Smokes a pack per day does not use alcohol Physical Exam Vital Signs Vital Signs Date Time Temp Pulse Resp B/P (MAP) Pulse Ox O2 Delivery O2 Flow Rate FiO2 05/26/17 08:00 97.9 73 19 122/77 (92) 99 05/26/17 00:00 98.2 67 19 123/68 (86) 99 05/25/17 20:00 98.2 77 19 123/73 (90) 99 05/25/17 16:00 97.8 73 16 113/58 (76) 99 05/25/17 12:00 98.0 70 17 128/70 (89) 98 Physical Exam GENERAL: This is a well-nourished, well-developed patient, in no apparent distress. He is anxious SKIN: No rashes, ecchymoses or lesions. Diaphoretic HEAD: Atraumatic. Normocephalic. No temporal or scalp tenderness. EYES: Pupils equal round and reactive. Extraocular motions intact. No scleral icterus. No injection or drainage. ENT: Nose without bleeding, purulent drainage or septal hematoma. Throat without erythema, tonsillar hypertrophy or exudate. Uvula midline. Airway patent. NECK: Trachea midline. No JVD or lymphadenopathy. Supple, nontender, no meningeal signs. CARDIOVASCULAR: Regular rate and rhythm without murmurs, gallops, or rubs. RESPIRATORY: Clear to auscultation. Breath sounds equal bilaterally. No wheezes , rales, or rhonchi. GASTROINTESTINAL: Abdomen soft, non-tender, nondistended external fixator left upper extremity. No guarding. MUSCULOSKELETAL: Extremities without clubbing, cyanosis, or edema. No joint tenderness, effusion, or edema noted. No calf tenderness. Negative Homans sign bilaterally. External fixator left forearm NEUROLOGICAL: Awake and alert. Cranial nerves II through XII intact. Motor and sensory grossly within normal limits. Five out of 5 muscle strength in all muscle groups. Normal speech. Laboratory Date/Time Source Procedure Growth Status 05/22/17 15:55 Wound Wrist Fungal Smear - Final NO FUNGAL ELEMENTS SEEN. Resulted 05/22/17 15:55 Wound Wrist Fungal Culture Pending Resulted Result Diagram: 05/22/17 1244 05/22/17 1244 Imaging Last Impressions Radius/Ulna X-Ray 05/22/17 0000 Signed Impressions: Service Date/Time: May 16:34 - CONCLUSION: 1. Left forearm external fixation, as above. Julito Zuleta MD Assessment and Plan Problem List: (1) Heroin addiction ICD Code: F11.20 - Opioid dependence, uncomplicated Assessment and Plan This is a 36-year-old male with a MSSA infection of the left distal radius with retained hardware status post incision and drainage and external fixator. Patient sustained a radial fracture while skateboarding. I have been consulted by patient's attending to evaluate for heroin withdrawal. Patient states that he snorts half a gram heroin every 2 days costing him $60. He continued to use while in-house ran out 05/25. He complains of hot and cold sensation, diaphoresis and restlessness. Also has increased lacrimation and sniffing. Denies hallucinations. He wants to get off heroin. His last IVDA was over a year ago. He has been diagnosed with hepatitis C and has not sought treatment. Heroin withdrawal. Hospital does not carry Suboxone and I do not have the license to prescribe. Patient will be started on methadone and continue Percocet and IV morphine. Will adjust dose accordingly. Patient counseled again regarding heroin abuse needs outpatient follow-up. Hepatitis C. Advised to seek treatment outpatient Low risk for DVT Discussed Condition With Patient, nurse and infectious disease Jose Gomez MD May 26, 2017 11:53
[2017-05-26 12:00] VITALS: BP 117/65; PULSE 76; RESP 19; TEMP 97.8; O2SAT 100
[2017-05-26] MEDS ORDERED: METHADONE HCL 10 MG TAB PO SCH (12:00)
--- NOTE | 2017-05-26 12:46 | HHI.IDPN ---
Note Infectious Disease Note Patient notes severe pain in the left wrist. Afebrile. Wound culture has MSSA. No drainage at the pin sites. Admitted with pain in the left wrist and infected left arm wound. Sustained a fracture of the left distal radius while skateboarding in [place] 2 weeks prior to admission. The patient underwent open reduction and internal fixation of a left intraarticular distal radius fracture on 05/08/2017. PAST MEDICAL HISTORY: Fracture of the cervical spine in 2006. Anterior cervical fusion C4 through C6. 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 ALLERGIES: NO KNOWN DRUG ALLERGIES. MEDICATIONS: Current Medications Medications (Trade) Dose Ordered Sig/Kim Route PRN Reason Start Time Stop Time Status Last Admin Dose Admin Sodium Chloride (NS Flush) 2 ml UNSCH PRN IV FLUSH FLUSH AFTER USING IV ACCESS 05/22/17 17:15 05/23/17 04:54 Sodium Chloride (NS Flush) 2 ml BID IV FLUSH 05/22/17 21:00 05/25/17 08:41 Oxycodone/ Acetaminophen (Percocet 5-325 Mg) 1 tab Q4H PRN PO PAIN LESS THAN 5 ON SCALE 05/22/17 17:15 Oxycodone/ Acetaminophen (Percocet 5-325 Mg) 2 tab Q6H PRN PO PAIN SCALE 5 TO 7 05/22/17 17:15 05/26/17 04:31 Morphine Sulfate (Morphine Inj) 2 mg Q4H PRN IV PUSH PAIN SCALE 8 TO 10 05/22/17 17:15 05/26/17 10:19 Ondansetron HCl (Zofran Inj) 4 mg Q4H PRN IVP NAUSEA OR VOMITING 05/22/17 17:15 Diphenhydramine HCl (Benadryl) 25 mg Q6H PRN PO ITCHING 05/22/17 17:15 Senna/Docusate Sodium (Charleen-Colace) 1 tab BID PO 05/22/17 21:00 05/25/17 20:23 Magnesium Hydroxide (Milk Of Magnesia Liq) 30 ml Q12H PRN PO Mild constipation 05/22/17 17:15 Sennosides (Senokot) 17.2 mg Q12H PRN PO Moderate constipation 05/22/17 17:15 Bisacodyl (Dulcolax Supp) 10 mg DAILY PRN RECTAL SEVERE CONSITIPATION 05/22/17 17:15 Lactulose (Lactulose Liq) 30 ml DAILY PRN PO SEVERE CONSITIPATION 05/22/17 17:15 Pharmacy Profile Note 0 ml @ 0 mls/hr UNSCH OTHER 05/23/17 16:15 Vancomycin HCl 1500 mg/Sodium Chloride 515 ml @ 257.5 mls/ hr Q12H IV 06/24/17 04:00 Miscellaneous Information SPECIFIC LAB TO BE DRAWN:[facility]... ONCE ONCE .XX 05/26/17 15:45 05/26/17 15:46 Methadone HCl (Dolophine) 10 mg DAILY PO 05/26/17 12:00 UNV Objective: Vital Signs Date Time Temp Pulse Resp B/P (MAP) Pulse Ox O2 Delivery O2 Flow Rate FiO2 05/26/17 08:00 97.9 73 19 122/77 (92) 99 05/26/17 00:00 98.2 67 19 123/68 (86) 99 05/25/17 20:00 98.2 77 19 123/73 (90) 99 05/25/17 16:00 97.8 73 16 113/58 (76) 99 PHYSICAL EXAMINATION: GENERAL: No acute distress. He is awake and alert and oriented. HEENT: Head is atraumatic. Extraocular movements grossly intact. No icterus. Oropharynx: Moist mucosa. No lesions. NECK: Supple without adenopathy. LUNGS: Clear breath sounds bilaterally. HEART: Regular S1 and S2. No murmurs, rubs or gallops. ABDOMEN: Bowel sounds present. Soft, nontender. EXTREMITIES: The left wrist has an external fixator in place. The surgical incision at the inner aspect of the wrist is clean. No visible drainage. No clubbing, cyanosis or edema. SKIN: No rash. NEUROLOGIC: No gross focal finding. PSYCHIATRIC: The patient is calm and cooperative. IMPRESSION: Wound infection of the left wrist following wrist fracture repair with hardware. Methicillin sensitive staph aureus. RECOMMENDATIONS: 1. Stop vancomycin. 2. Begin ceftriaxone intravenous. Treat with ceftriaxone for 2 weeks. This can be given outpatient once a day at the infusion clinic. Follow-up with orthopedics. 3. PICC line ordered. Okay to discharge from my standpoint once arrangements for antibiotics patient is arranged. Ulysses Murillo MD May 26, 2017 12:46
--- NOTE | 2017-05-26 12:50 | HHI.FF ---
Infusion Therapy Location of Infusion Therapy: Ambulatory Infusion Therapy Order Patient Information Patient Weight 70.1 kg Diagnosis: Diagnosis infected left wrist post op wound. MSSA. Coded Allergies: No Known Allergies (Verified Allergy, Unknown, 05/08/17) Administer Medication Ceftriaxone 2 grams IV q 24 hours Stop Treatment: Jun 05, 2017 Additional Information Venous access: PICC Line Additional Instructions [x] Peripheral flush and dressing changes per protocol [x] Implanted port and central aerosol line operator: * Implanted port: 10 ml Normal Saline followed by 5 ml Heparin 100 units/ml Heparin flush after each use and monthly to maintain. [] May leave port accessed during therapy. [] May leave peripheral site accessed for duration of therapy. [x] If patient has SOB or respiratory distress, check oxygen saturation. If less than 90% or clinical signs of respiratory distress, administer oxygen at 2 L/min. via nasal cannula and notify physician. [x] Anaphylaxis/Reaction orders: * Stop infusion. * Keep IV line open with saline flush. * Notify physician. * Monitor vital signs every 15 minutes until symptoms resolve. * Check Oxygen saturation; Oxygen at 2 L/min. via nasal cannula if less than 90% or clinical signs of respiratory distress. * Administer diphenhydramine (Benadryl) 25 mg IV STAT, (unless patient has received as pre-med). May repeat once, if necessary. * Solu-Cortef 250 mg IVP over 30-60 seconds, use 100 mg vials for each dissolution. * Epinephrine (1mg/1 ml) 0.3 mg subcutaneously or IVP now with any signs of respiratory distress. * Check with physician for new additional pre-med orders if patient is re- challenged or re-treated. [x] May remove PICC line when treatment complete, after confirming with Physician. [x] If the patient is admitted to the hospital, the ED, or transferred via [facility] , complete transfer form including medication reconciliation order sheet. Ulysses Murillo MD May 26, 2017 12:50
[2017-05-26] MEDS ORDERED: cefTRIAXone INJ 2,000 MG in SODIUM CHLORIDE 0.9% INJ 100 ML IV SCH (14:00)
[2017-05-26] MEDS ORDERED: PHARMACY ORDERED LAB ONE (15:45)
[2017-05-26 16:00] VITALS: BP 138/79; PULSE 77; RESP 19; TEMP 97.9; O2SAT 99
[2017-06-24] MEDS ORDERED: VANCOMYCIN 1,500 MG/NS 500 ML IV SCH ×2 (04:00)
== END 2017-05-26 20:10 | disposition left against medical advice (07) | DRG 857 ==
LOC: HSDI 11:39 → EDSTATUS 14:30 → N07B 19:55
PROVIDERS: ADMIT Orthopaedic Surgery Orthopaedic Surgery of the Spine; ATTEND Orthopaedic Surgery Orthopaedic Surgery of the Spine
PROC: 0HBEXZZ Excision of Left Lower Arm Skin, External Approach (ICD-10-PCS; 2017-05-22)
PROC: 0PHJ35Z Insertion of External Fixation Device into Left Radius, Percutaneous Approach (ICD-10-PCS; principal; 2017-05-22 15:14)
DX: T81.4XXA Infection following a procedure, initial encounter (principal); F11.23 Opioid dependence with withdrawal; B95.61 Methicillin susceptible Staphylococcus aureus infection as the cause of diseases classified elsewhere; B19.20 Unspecified viral hepatitis C without hepatic coma; F17.210 Nicotine dependence, cigarettes, uncomplicated
CPT/HCPCS: 36569; 73090; 76000; 76937; 80048; 80202; 85025; 85610; 85652; 86140; 86403; 87015; 87070; 87102; 87116; 87186; 87205; 87206; 94150; C1713; J0131; J0690; J0696; J1170; J1580; J1885; J2060; J2175; J2270; J2405; J3010; J3370; J3410; J7050; J7120

== ENCOUNTER → 2017-07-30 | Outpatient (CLI) | payer SELFPAY | LOC: HORT 11:11 | PROVIDERS: ATTEND Orthopaedic Surgery Orthopaedic Surgery of the Spine | DX: Z47.89 Encounter for other orthopedic aftercare (principal) | CPT/HCPCS: L3908 ==